=== PATIENT | female | born 2000 | race African-American/Black ===

== ENCOUNTER 2021-09-07 10:06 | Emergency (ER) | payer OTHER ==
[~2021-09-07] VITALS: Ht 165.1 cm; Wt 54.4 kg
[2021-09-07 10:09] VITALS: BP 124/74
[2021-09-07 13:15] LABS: ABSOLUTE NEUTROPHILS 5.4 thou/uL (1.4-8.2); BASOPHILS 0.7 % (0.0-2.0); EOSINOPHILS 1.5 % (0.0-3.0); HEMATOCRIT 39.5 % (37.0-47.0); HEMOGLOBIN 12.9 gm/dL (12.0-15.0); LYMPHOCYTES 27.5 % (24.0-44.0); MCH 26.3 pg (26.0-34.0); MCHC 32.6 g/dL (28.0-37.0); MCV 80.6 fL (80.0-100.0); MONOCYTES 6.8 % (1.0-8.0); PLATELET COUNT 337 thou/uL (150-400); POLYS 63.5 % (36.0-66.0); RDW 13.7 % (10.5-14.5); WBC 8.5 thou/uL (4.0-11.0)
[2021-09-07 13:24] LABS: CALCIUM 9.1 mg/dL (8.5-10.1); CREATININE 0.7 mg/dL (0.6-1.0); POTASSIUM 4.1 mmol/L (3.5-5.1)
[2021-09-07 13:31] LABS: ALBUMIN 3.7 g/dL (3.4-5.0); TOTAL BILIRUBIN 0.8 mg/dL (0.2-1.0)
[2021-09-07 13:44] LABS: URINE BILIRUBIN NEGATIVE (Negative); URINE BLOOD NEGATIVE (Negative); URINE CLARITY CLEAR; URINE COLOR YELLOW; URINE GLUCOSE-RANDOM* NEGATIVE (Negative); URINE KETONES 1+ (Negative); URINE LEUKOCYTES-REFLEX NEGATIVE (Negative); URINE NITRITE-REFLEX NEGATIVE (Negative); URINE PROTEIN (DIPSTICK) NEGATIVE (Negative); URINE UROBILINOGEN 0.2 E.U./dl (0.2-1.0)
[2021-09-07 14:02] LABS: APTT 32.2 Seconds (24.5-32.8); INR 1.11
[2021-09-07] MEDS ORDERED: VITAMIN B-625 MG PO (14:17)
== END 2021-09-07 14:22 | disposition home or self-care (01) ==
LOC: ER 10:06
PROVIDERS: Physician Assistant
DX: O21.8 Other vomiting complicating pregnancy (principal); E86.0 Dehydration; K92.0 Hematemesis; Z3A.01 Less than 8 weeks gestation of pregnancy